=== PATIENT | female | born 1945 | race Caucasian/White ===

== ENCOUNTER 2017-01-13 05:36 | Inpatient (IN) | payer OTHER ==
[~2017-01-13] VITALS: Ht 158.8 cm; Wt 80.3 kg
[~2017-01-13 05:36] MED LIST: ADULT LOW DOSE81 MG PO; ADVAIR 250/501 DISK IH; ADVAIR 500-501 EACH IH; ATENOLOL50 M1 PO; ATROVENT BOTH NARES; BUTALB-APAP-CA1 EACH PO; CO Q-1050 MG PO; DAILY VALUE1 EACH PO; FIORICET,ESG1 TABLET PO; FISH OIL 1,2001 EAC4 PO; FLONASE16 G1 BOTH NARES; FLUSH FREE NIACIN PO; GLUCOSAMINE CH1 EAC7 PO; HYDROXYZINE HCL25 M1 PO; IMODIUM A-D2 M2 PO; IRON325 M1 PO; LO-DOSE ASPIRIN81 M1 PO; MAXZIDE 37.5 M1 EACH PO; METAMUCIL PO; NORVASC2.5 MG PO; PRAVACHOL20 MG PO; PREVACID30 MG PO; PROAIR HFA8.5 GM IH; RED YEAST RICE600 M1 PO; SINGULAIR10 MG PO; TENORMIN25 MG PO; TRIAMTERENE-HC1 EACH PO; VALTREX1000 MG PO; VALTREX50 MG/ML PO; VITAMIN C500 M1 PO; VITAMIN D2000 UNIT PO; ZOCOR10 MG PO
[2017-01-13 06:11] VITALS: BP 161/71
[2017-01-13 10:35] LABS: HEMATOCRIT 31.8 % (36.0-46.0); MCH 32.5 PG (29.0-34.0); MCHC 34.6 G/DL (30.0-36.0); MEAN PLAT.VOLUME 11.7 uM^3 (9.5-12.4); RBC DIS.WIDTH-CV 12.2 % (11.8-14.6); RED BLOOD COUNT 3.38 M/uL (3.80-5.20)
[2017-01-13 10:41] LABS: MCV 94.1 FL (83-99); PLATELET COUNT 146 K/uL (156-360)
[2017-01-13 11:15] VITALS: BP 182/77
[2017-01-13 12:18] VITALS: BP 142/67
[2017-01-13 15:53] VITALS: BP 150/66
[2017-01-13 17:52] LABS: C DIFF TOXIN NEGATIVE (NEGATIVE)
[2017-01-13 18:07] LABS: PROBE CHECK PASS; SPECIMEN PROCESSING CONTROL PASS
[2017-01-13 19:46] VITALS: BP 147/70
[2017-01-13 23:57] VITALS: BP 156/66
[2017-01-14 04:16] VITALS: BP 135/61
[2017-01-14 05:23] LABS: HEMATOCRIT 30.4 % (36.0-46.0); MCV 96.2 FL (83-99)
[2017-01-14 05:47] LABS: ANION GAP 8 MEQ/L (2-14); CHLORIDE 103 MEQ/L (99-109); GFR ESTIMATE (CALCULATED) 58 mL/min/; GLUCOSE 127 mg/dL (70-99); SAMPLE HEMOLYSIS CHECK 0; SAMPLE ICTERIC CHECK 0; SAMPLE LIPEMIA CHECK 0; SODIUM 136 MEQ/L (136-147); UREA NITROGEN (BUN) 13 mg/dL (9-23)
[2017-01-14 08:05] VITALS: BP 150/69
[2017-01-14 11:43] VITALS: BP 132/60
[2017-01-14 15:38] VITALS: BP 144/67
[2017-01-14 20:01] VITALS: BP 147/68
[2017-01-14 23:31] VITALS: BP 162/73
[2017-01-15 04:25] VITALS: BP 153/71
[2017-01-15 05:27] LABS: HEMATOCRIT 29.8 % (36.0-46.0); MCV 97.1 FL (83-99)
[2017-01-15 08:07] VITALS: BP 154/69
[2017-01-15] MEDS ORDERED: HYDROCODON-ACE1 EAC7 PO (09:16)
[2017-01-15] MEDS ORDERED: LOVENOX40 MG/0.4 SC (09:16)
[2017-01-15] MEDS ORDERED: CELECOXIB200 MG PO (09:16)
[2017-01-15 12:05] VITALS: BP 158/69
[2017-01-15 15:16] VITALS: BP 181/72
== END 2017-01-15 16:20 | DRG 470 ==
LOC: 2SOUTH 05:36 → 3WEST 10:49 → 2SOUTH 15:40 → 3WEST 01-15 16:20
PROVIDERS: Orthopaedic Surgery
PROC: 0SRD0J9 Replacement of Left Knee Joint with Synthetic Substitute, Cemented, Open Approach (ICD-10-PCS; principal; 2017-01-13)
DX: M17.12 Unilateral primary osteoarthritis, left knee (principal); G62.9 Polyneuropathy, unspecified; B95.61 Methicillin susceptible Staphylococcus aureus infection as the cause of diseases classified elsewhere; I10 Essential (primary) hypertension; E78.2 Mixed hyperlipidemia; J45.909 Unspecified asthma, uncomplicated; E21.3 Hyperparathyroidism, unspecified; Z79.899 Other long term (current) drug therapy; E66.9 Obesity, unspecified; Z68.31 Body mass index [BMI] 31.0-31.9, adult; T81.4XXD Infection following a procedure, subsequent encounter; I44.7 Left bundle-branch block, unspecified; R94.31 Abnormal electrocardiogram [ECG] [EKG]; R73.02 Impaired glucose tolerance (oral)
CPT/HCPCS: 73560; 80048; 85014; 85018; 85027; 87493; 94640; 94640 76; 99202; J0131; J0690; J1650; J1885; J2250; J2405; J2765; J3010; J7050